=== PATIENT | male | born 1945 | race Caucasian/White ===

== ENCOUNTER 2017-03-05 15:21 | Emergency (ER) | payer MEDICARE, BC ==
[~2017-03-05] VITALS: Ht 167.6 cm; Wt 80.0 kg
[~2017-03-05 15:21] MED LIST: AMLO5TAB96 PO; ASPI81TA82 PO; BETH25TA PO; CHOL1CAP6 PO; CLOP75 PO; HYDR12.56 PO; IBUP600T26 PO; MULTCAP14 PO; PRAV20TA67 PO; TAMS0.4C67 PO; TAMS5CAP PO; TOPR50TA PO; TYLE500T PO; VITA-83 PO
[2017-03-05 15:23] VITALS: BP 132/76; PULSE 74; RESP 18; TEMP 97.9; O2SAT 96
[2017-03-05] MEDS ORDERED: PRAV20TA2 PO (15:40)
[2017-03-05] MEDS ORDERED: TAMS0.4C4 PO (15:40)
[2017-03-05] MEDS ORDERED: CLOP75TA PO (15:40)
[2017-03-05] MEDS ORDERED: ASPI1TAB69 PO (15:40)
[2017-03-05] MEDS ORDERED: METO50TA11 PO (15:40)
--- NOTE | 2017-03-05 15:57 | PD ---
HPI Chief Complaint: Complaint Time Seen by Provider: 15:28 Travel History International Travel<30 days: No Contact w/Intl Traveler<30days: No Traveled to known affect area: No History of Present Illness HPI 71-year-old male presents with unable to urinate since 10 AM this morning. He notes one prior episode this after he had back surgery. He states that he's also having burning when he does urinate. He denies any fever or other concurrent complaints. Quality is retention. Severity is since 10 AM. PFSH Past Medical History Arthritis: Yes Heart Rhythm Problems: No Cancer: No Cardiovascular Problems: Yes High Cholesterol: Yes Chest Pain: No Congestive Heart Failure: No Cerebrovascular Accident: No Endocrine: No Gastrointestinal Disorders: Yes GERD: Yes Genitourinary: Yes Hiatal Hernia: Yes Hypertension: Yes Immune Disorder: No Kidney Stones: No Musculoskeletal: Yes (CHRONIC BACK PAIN) Neurologic: Yes Psychiatric: No Reproductive: No Respiratory: No Migraines: No Myocardial Infarction: Yes Renal Failure: No Seizures: No Ulcer: No Influenza Vaccination: No Past Surgical History Abdominal Surgery: No Cardiac Surgery: Yes (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); 2009 ANGIOPLASTY) Coronary Artery Bypass Graft: Yes Ear Surgery: No Endocrine Surgery: No Eye Surgery: No Genitourinary Surgery: Yes (VASECTOMY 1970) Oral Surgery: No Thoracic Surgery: No Other Surgery: Yes Social History Alcohol Use: Yes (6PK BEER DAILY) Tobacco Use: No Substance Use: No Allergies-Medications (Allergen,Severity, Reaction): Coded Allergies: No Known Allergies (Verified , 03/05/17) Reported Meds & Prescriptions Reported Meds & Active Scripts Active Reported Aspirin 81 Mg Tabdr 81 Mg PO DAILY Pravastatin 20 Mg Tab 20 Mg PO DAILY Metoprolol Succinate ER 24 HR (Metoprolol Succinate) 50 Mg Tab 50 Mg PO DAILY Clopidogrel (Clopidogrel Bisulfate) 75 Mg Tab 75 Mg PO DAILY Tamsulosin (Tamsulosin HCl) 0.4 Mg Cap 0.4 Mg PO HS Review of Systems Except as stated in HPI: all other systems reviewed are Neg Physical Exam Narrative GENERAL: Well-nourished, well-developed patient. SKIN: Warm and dry. HEAD: Normocephalic and atraumatic. EYES: No injection or drainage. ENT: No nasal drainage noted. NECK: Supple, trachea midline. CARDIOVASCULAR: Regular rate and rhythm RESPIRATORY: No increased effort. No accessory muscle use. GASTROINTESTINAL: Abdomen soft, mild tenderness suprapubic EXTREMITIES: No edema. BACK: Nontender without obvious deformity. NEUROLOGICAL: Awake and alert. Moves all extremities. Normal speech. Data Data Last Documented VS Vital Signs Date Time Temp Pulse Resp B/P Pulse Ox O2 Delivery O2 Flow Rate FiO2 03/05/17 15:23 97.9 74 18 132/76 96 Orders Urinary Catheter Insert/Apply (03/05/17 15:29) Urinalysis - C+S If Indicated (03/05/17 15:29) Labs Laboratory Tests Test 03/05/17 16:00 Urine Color YELLOW Urine Turbidity HAZY Urine pH 6.0 Urine Specific [place] 1.007 Urine Protein NEG mg/dL Urine Glucose (UA) NEG mg/dL Urine Ketones TRACE mg/dL Urine Occult Blood NEG Urine Nitrite NEG Urine Bilirubin NEG Urine Leukocyte Esterase NEG Urine RBC 0-3 /hpf Urine WBC 0-2 /hpf Urine Squamous Epithelial 0-5 /hpf Cells Microscopic Urinalysis Comment CULT NOT INDICATED MDM Medical Decision Making Medical Screen Exam Complete: Yes Emergency Medical Condition: Yes Medical Record Reviewed: Yes (past history confirmed) Interpretation(s) ua without uti Differential Diagnosis UTI, retention, stone Narrative Course Will Have Staff place Martínez catheter and check urinalysis and reevaluate martínez with 400cc uop and still draining ua no uti, Patient denies any new complaints and states that they are feeling better. Patient happy with care, all questions answered. Patient knows that follow up is incumbent on them and to return to the emergency room immediately if new or worsening symptoms develop. Patient given strict return precautions, vitals reviewed and are normal, agrees to further workup as an outpatient. Diagnosis Primary Impression: Urinary retention Referrals: Urologist call for appointment Patient Instructions: General Instructions Additional Instructions: Follow with urology within 2 days, return as needed, keep catheter in place Med/Other Pt SpecificInfo: No Change to Meds Disposition: 01 DISCHARGE HOME Condition: Stable Coral Marie MD March 05, 2017 15:56
[2017-03-05 16:23] LABS: BLOOD, URINE NEG (NEG); GLUCOSE,URINE NEG (NEG); KETONE, URINE TRACE mg/dL (NEG); NITRITE,URINE NEG (NEG)
[2017-03-05 16:42] LABS: URINE COLOR YELLOW (YELLW/STRAW)
[2017-03-05 16:43] LABS: COMMENT (UR) CULT NOT INDICATED; CULTURE IF INDICATED CULT NOT INDICATED; RBC, URINE 0-3 /hpf (0-3); SQUAMOUS EPITHELIAL CELL URINE 0-5 /hpf (0-5); WBC, URINE 0-2 /hpf (0-5)
[2017-03-05 17:35] VITALS: BP 113/54
== END 2017-03-05 17:36 | disposition home or self-care (01) ==
LOC: PHED 15:21
DX: R33.9 Retention of urine, unspecified (principal)
CPT/HCPCS: 51702; 81001